=== PATIENT | female | born 1980 | race Caucasian/White ===

== ENCOUNTER 2017-02-21 18:11 | Emergency (ER) | payer MEDICAID ==
[~2017-02-21 18:11] MED LIST: METFORMIN ER500 M1 PO
[2017-02-21 19:39] VITALS: BP 170/85
== END 2017-02-21 19:39 | disposition home or self-care (01) ==
LOC: ED 18:11
DX: K08.89 Other specified disorders of teeth and supporting structures (principal); R51 Headache
CPT/HCPCS: J1885; J3490

== ENCOUNTER 2017-08-21 18:36 | Inpatient (IN) | payer MEDICAID ==
[~2017-08-21] VITALS: Ht 154.9 cm; Wt 63.2 kg
[2017-08-21 20:34] LABS: BASOPHIL % 0.3 % (0-2)
[2017-08-21 20:38] LABS: microscopic required? YES; urine erythrocyte TRACE (NEGATIVE)
[2017-08-21 20:43] LABS: CALCIUM 7.9 mg/dL (8.5-10.1); CARBON DIOXIDE 29.4 mmol/L (21-32); CREATININE SERUM 1.1 mg/dL (0.6-1.0); POTASSIUM SERUM 3.5 mmol/L (3.5-5.1)
[2017-08-21 20:45] LABS: PLATELET COUNT 492 x10^3mcL (130-400); RED CELL DISTRIBUTION WIDTH 24.4 % (11.5-14.5)
[2017-08-21 20:56] LABS: BILIRUBIN TOTAL 0.3 mg/dL (0.20-1.00); FREE T4 1.26 ng/dL (0.76-1.46); TOTAL PROTEIN, SERUM 7.6 g/dL (6.4-8.2)
[2017-08-21 20:57] LABS: ALBUMIN 2.4 g/dL (3.4-5.0)
[2017-08-21 23:26] VITALS: BP 153/77
[2017-08-21 23:33] LABS: MAGNESIUM 1.5 mg/dL (1.8-2.4); PHOSPHOROUS 3.7 mg/dL (2.5-4.9)
[2017-08-21 23:34] LABS: CHOLESTEROL/HDL RATIO 4.7
[2017-08-21 23:35] LABS: T3 TOTAL 1.03 ng/mL
[2017-08-21 23:40] LABS: FREE T4 1.28 ng/dL (0.76-1.46); FREE THYROXINE INDEX 2.8 ug/dL (1.4-4.5); T4(THYROXINE) 7.7 ug/dL (4.7-13.3)
[2017-08-22] MEDS ORDERED: BIAXIN FILMTAB500 MG PO (00:12)
[2017-08-22] MEDS ORDERED: AMOX/CLAV POT1 TAB PO (00:13)
[2017-08-22] MEDS ORDERED: PROTONIX40 MG PO (00:15)
[2017-08-22] MEDS ORDERED: REGLAN10 M1 PO (00:16)
[2017-08-22] MEDS ORDERED: METOPROLOL TART25 M1 PO (00:17)
[2017-08-22] MEDS ORDERED: GUAIFENESIN E1200 MG PO (00:18)
[2017-08-22] MEDS ORDERED: METFORMIN HYD1000 M2 PO (00:21)
[2017-08-22 05:37] VITALS: BP 159/80
[2017-08-22 06:13] LABS: BASOPHIL % 0.3 % (0-2)
[2017-08-22 06:34] LABS: CALCIUM 7.7 mg/dL (8.5-10.1); CARBON DIOXIDE 27.4 mmol/L (21-32); CHLORIDE SERUM 103 mmol/L (98-107); CREATININE SERUM 0.9 mg/dL (0.6-1.0); GFR1 > 60 mL/min; GLUCOSE SERUM 142 mg/dL (74-106); MAGNESIUM 1.6 mg/dL (1.8-2.4); PHOSPHOROUS 4.2 mg/dL (2.5-4.9); POTASSIUM SERUM 3.4 mmol/L (3.5-5.1); SODIUM SERUM 139 mmol/L (136-145)
[2017-08-22 06:43] LABS: PLATELET COUNT 403 x10^3mcL (130-400); RED CELL DISTRIBUTION WIDTH 25.8 % (11.5-14.5); rbc morphology (normal/abnorm) ABNORMAL (NORMAL)
[2017-08-22 08:31] LABS: TOTAL IRON BINDING CAPACITY 256 ug/dL (250-450)
[2017-08-22 08:33] LABS: IRON 15 ug/dL (50-170)
[2017-08-22 08:53] LABS: RED BLOOD CELLS 3.96 M/mm3 (4.10-5.10)
[2017-08-22 09:05] VITALS: BP 161/77
[2017-08-22 13:17] VITALS: BP 139/77
[2017-08-22 17:25] VITALS: BP 147/81
[2017-08-22 21:08] VITALS: BP 148/72
[2017-08-22 22:22] LABS: AMPHETAMINE QUAL UR NONE DETECTED (NEG <=1000)
[2017-08-23 03:08] LABS: BASOPHIL % 0.6 % (0-2); RED CELL DISTRIBUTION WIDTH 26.3 % (11.5-14.5)
[2017-08-23 03:09] LABS: CALCIUM 8.1 mg/dL (8.5-10.1); CARBON DIOXIDE 28.9 mmol/L (21-32); CREATININE SERUM 1.1 mg/dL (0.6-1.0); MAGNESIUM 1.9 mg/dL (1.8-2.4); PHOSPHOROUS 3.9 mg/dL (2.5-4.9); PLATELET COUNT 431 x10^3mcL (130-400); POTASSIUM SERUM 3.9 mmol/L (3.5-5.1)
[2017-08-23 06:19] VITALS: BP 163/77
[2017-08-23 08:47] VITALS: BP 142/99
[2017-08-23 13:20] VITALS: BP 156/83
[2017-08-23 16:23] VITALS: BP 128/69
[2017-08-23 18:03] VITALS: Ht 154.9 cm; Wt 63.2 kg
[2017-08-23 20:19] VITALS: BP 152/77
[2017-08-24 05:06] VITALS: BP 155/76
[2017-08-24 06:22] LABS: BASOPHIL % 0.5 % (0-2)
[2017-08-24 07:07] LABS: CALCIUM 8.7 mg/dL (8.5-10.1); CARBON DIOXIDE 27.7 mmol/L (21-32); CREATININE SERUM 1.1 mg/dL (0.6-1.0); PLATELET COUNT 464 x10^3mcL (130-400); POTASSIUM SERUM 3.7 mmol/L (3.5-5.1); RED CELL DISTRIBUTION WIDTH 26.4 % (11.5-14.5)
[2017-08-24 08:59] VITALS: BP 143/80
[2017-08-24 11:13] VITALS: BP 143/80
== END 2017-08-24 12:12 | disposition home or self-care (01) | DRG 241 ==
LOC: ED 18:36 → DU 21:46
PROVIDERS: Emergency Medicine; Family Medicine Sports Medicine; Internal Medicine
PROC: 30233N1 Transfusion of Nonautologous Red Blood Cells into Peripheral Vein, Percutaneous Approach (ICD-10-PCS; 2017-08-22)
PROC: 0DB68ZX Excision of Stomach, Via Natural or Artificial Opening Endoscopic, Diagnostic (ICD-10-PCS; principal; 2017-08-23 08:00)
PROC: 0DB78ZX Excision of Stomach, Pylorus, Via Natural or Artificial Opening Endoscopic, Diagnostic (ICD-10-PCS; 2017-08-23 08:00)
DX: K25.9 Gastric ulcer, unspecified as acute or chronic, without hemorrhage or perforation (principal); N17.0 Acute kidney failure with tubular necrosis; E43 Unspecified severe protein-calorie malnutrition; R65.10 Systemic inflammatory response syndrome (SIRS) of non-infectious origin without acute organ dysfunction; E83.42 Hypomagnesemia; K22.6 Gastro-esophageal laceration-hemorrhage syndrome; D64.9 Anemia, unspecified; E11.9 Type 2 diabetes mellitus without complications; K21.9 Gastro-esophageal reflux disease without esophagitis; D47.3 Essential (hemorrhagic) thrombocythemia; K29.70 Gastritis, unspecified, without bleeding; I16.0 Hypertensive urgency; K20.8 Other esophagitis; E87.6 Hypokalemia; Z88.1 Allergy status to other antibiotic agents; Z68.29 Body mass index [BMI] 29.0-29.9, adult; Z90.49 Acquired absence of other specified parts of digestive tract; Z87.11 Personal history of peptic ulcer disease; Z98.51 Tubal ligation status; Z83.3 Family history of diabetes mellitus
CPT/HCPCS: 43235; 82962; 83880; 84439; 87804; J1200; J1610; J1940; J2250; J2310; J2916; J3010; J3475; J3490; J7030; J7050; J8597; P9016; Q0092; Q0163; Q9967

== ENCOUNTER 2018-05-15 18:24 | Emergency (ER) | payer MEDICAID ==
[~2018-05-15] VITALS: Ht 152.4 cm; Wt 68.9 kg
[~2018-05-15 18:24] MED LIST changes: +AMOX/CLAV POT1 TAB PO; +BIAXIN FILMTAB500 MG PO; +GUAIFENESIN E1200 MG PO; +METFORMIN HYD1000 M2 PO; +METOPROLOL TART25 M1 PO; +PROTONIX40 MG PO; +REGLAN10 M1 PO
[2018-05-15 18:32] VITALS: Ht 152.4 cm; Wt 68.9 kg
[2018-05-15 22:19] LABS: BASOPHIL % 0.3 % (0-2)
[2018-05-15 22:25] LABS: CALCIUM 8.8 mg/dL (8.5-10.1); CARBON DIOXIDE 26.5 mmol/L (21-32); CREATININE SERUM 1.6 mg/dL (0.6-1.0); POTASSIUM SERUM 4.4 mmol/L (3.5-5.1)
[2018-05-15 22:32] LABS: PLATELET COUNT 418 x10^3mcL (130-400); RED CELL DISTRIBUTION WIDTH 17.3 % (11.5-14.5)
[2018-05-15 22:43] LABS: BILIRUBIN TOTAL 0.1 mg/dL (0.20-1.00)
[2018-05-15 23:30] LABS: rbc morphology (normal/abnorm) NORMAL (NORMAL)
[2018-05-16 00:10] VITALS: BP 148/71
== END 2018-05-16 00:10 | disposition home or self-care (01) ==
LOC: ED 18:24
PROVIDERS: Specialist
DX: M54.5 Low back pain (principal); E11.65 Type 2 diabetes mellitus with hyperglycemia; Z86.2 Personal history of diseases of the blood and blood-forming organs and certain disorders involving the immune mechanism; Z90.89 Acquired absence of other organs; Z88.1 Allergy status to other antibiotic agents
CPT/HCPCS: 82962; J1885; J2270; J2405; J7030